=== PATIENT | male | born 1950 | race Caucasian/White ===

== ENCOUNTER 2020-12-12 14:38 | Emergency (ER) | payer MEDICARE ==
[2020-12-12 14:46] VITALS: RESP 18; TEMP 97.9
[2020-12-12 14:55] LABS: Glucose,Whole Blood 393 mg/dL (75-99)
--- NOTE | 2020-12-12 15:02 | ED ---
Neuro HPI - General Chief Complaint: Neuro Symptoms/Deficit Stated Complaint: Poss Stroke Time Seen by Provider: 12/12/20 14:52 Source: patient, family Mode of arrival: wheelchair Limitations: no limitations - History of Present Illness Is the patient presenting with stroke symptoms?: Yes Last Known Well Date: 12/09/20 Onset/Timin -: days(s) Initial Comments: Kendrikc is a 70-year-old male who presents to the emergency department today via private vehicle for evaluation of confusion, right arm weakness, vision changes. Son notes that he noted on Sunday that his dad's right arm seemed to be weak and not working right. Today when he reevaluated the patient the patient had confusion didn't seem like himself didn't seem like he been bathing himself over the weekend. - Related Data Home Medications: Home Medications Medication Instructions Recorded Confirmed No Known Home Medications 12/12/20 12/12/20 Allergies/Adverse Reactions: Allergies Allergy/AdvReac Type Severity Reaction Status Date / Time No Known Allergies Allergy Verified 12/12/20 15:53 Review of Systems ROS Statement: Those systems with pertinent positive or pertinent negative responses have been documented in the HPI. ROS Other: All systems not noted in ROS Statement are negative. General Exam Limitations: no limitations General appearance: alert Head exam: Present: atraumatic, normocephalic Eye exam: Present: other (Pupils round, right less reactive than left, loss of right visual field) ENT exam: Present: normal exam Neck exam: Present: full ROM Respiratory exam: Absent: respiratory distress Cardiovascular Exam: Present: regular rate, normal rhythm Extremities exam: Present: normal capillary refill Neurological exam: Present: alert, other (Drift and Ataxia of right upper extremity) Psychiatric exam: Present: normal affect Skin exam: Present: warm, dry Stroke MDM - Lab Data Result diagrams: 12/12/20 15:01 12/12/20 15:01 Lab Results 12/12/20 12/12/20 12/12/20 Range/Units 14:52 15:01 15:01 WBC 10.4 (3.8-10.6) k/uL RBC 5.20 (4.30-5.90) m/uL Hgb 17.5 (13.0-17.5) gm/dL Hct 52.5 (39.0-53.0) % MCV 100.9 H (80.0-100.0) fL MCH 33.6 (25.0-35.0) pg MCHC 33.3 (31.0-37.0) g/dL RDW 12.4 (11.5-15.5) % Plt Count 278 (150-450) k/uL MPV 9.7 Neutrophils % 82 % Lymphocytes % 10 % Monocytes % 5 % Eosinophils % 1 % Basophils % 1 % Neutrophils # 8.5 H (1.3-7.7) k/uL Lymphocytes # 1.0 (1.0-4.8) k/uL Monocytes # 0.6 (0-1.0) k/uL Eosinophils # 0.1 (0-0.7) k/uL Basophils # 0.1 (0-0.2) k/uL PT 10.4 (9.0-12.0) sec INR 1.0 (<1.2) APTT 25.5 (22.0-30.0) sec Sodium (137-145) mmol/L Potassium (3.5-5.1) mmol/L Chloride (98-107) mmol/L Carbon Dioxide (22-30) mmol/L Anion Gap mmol/L BUN (9-20) mg/dL Creatinine (0.66-1.25) mg/dL Est GFR (CKD-EPI)AfAm (>60 ml/min/1.73 sqM) Est GFR (CKD-EPI)NonAf (>60 ml/min/1.73 sqM) Glucose (74-99) mg/dL POC Glucose (mg/dL) 393 H (75-99) mg/dL POC Glu Wire Basket Maker ID Ricardo Sifuentes Calcium (8.4-10.2) mg/dL Total Bilirubin (0.2-1.3) mg/dL AST (17-59) U/L ALT (4-49) U/L Alkaline Phosphatase (38-126) U/L Troponin I (0.000-0.034) ng/mL Total Protein (6.3-8.2) g/dL Albumin (3.5-5.0) g/dL 12/12/20 12/12/20 Range/Units 15:01 15:01 WBC (3.8-10.6) k/uL RBC (4.30-5.90) m/uL Hgb (13.0-17.5) gm/dL Hct (39.0-53.0) % MCV (80.0-100.0) fL MCH (25.0-35.0) pg MCHC (31.0-37.0) g/dL RDW (11.5-15.5) % Plt Count (150-450) k/uL MPV Neutrophils % % Lymphocytes % % Monocytes % % Eosinophils % % Basophils % % Neutrophils # (1.3-7.7) k/uL Lymphocytes # (1.0-4.8) k/uL Monocytes # (0-1.0) k/uL Eosinophils # (0-0.7) k/uL Basophils # (0-0.2) k/uL PT (9.0-12.0) sec INR (<1.2) APTT (22.0-30.0) sec Sodium 136 L (137-145) mmol/L Potassium 4.5 (3.5-5.1) mmol/L Chloride 98 (98-107) mmol/L Carbon Dioxide 22 (22-30) mmol/L Anion Gap 16 mmol/L BUN 48 H (9-20) mg/dL Creatinine 2.22 H (0.66-1.25) mg/dL Est GFR (CKD-EPI)AfAm 34 (>60 ml/min/1.73 sqM) Est GFR (CKD-EPI)NonAf 29 (>60 ml/min/1.73 sqM) Glucose 423 H (74-99) mg/dL POC Glucose (mg/dL) (75-99) mg/dL POC Glu Wire Basket Maker ID Calcium 10.3 H (8.4-10.2) mg/dL Total Bilirubin 1.0 (0.2-1.3) mg/dL AST 49 (17-59) U/L ALT 29 (4-49) U/L Alkaline Phosphatase 109 (38-126) U/L Troponin I 0.084 H* (0.000-0.034) ng/mL Total Protein 8.1 (6.3-8.2) g/dL Albumin 4.4 (3.5-5.0) g/dL - NIH Stroke Scale 1a. Level of Consciousness: (0) alert 1c. LOC Commands: (0) performs tasks correctly 2. Best Gaze: (0) normal 3. Visual: (1) partial hemianopia 4. Facial Palsy: (0) normal symmetrical movement 5a. Motor Arm Left: (0) no drift 5b. Motor Arm Right: (1) drift 6a. Motor Leg Left: (0) no drift 6b. Motor Leg Right: (0) no drift 7. Limb Ataxia: (1) present 1 limb 8. Sensory: (1) mild/moderate sensory loss 9. Best Language: (0) no aphasia 10. Dysarthria: (0) normal 11. Extinction/Inattention: (1) visual/tactile inattention - Thrombolytic Inclusion/Exclusion Thrombolytic Exclusion Criteria: Symptom Onset > 4.5 Hours - Medical Decision Making Patient was seen and evaluated Patient reported having some symptoms on Sunday initially reported they resolved and now had new symptoms for code stroke was activated however upon further questioning it seems patient has had persistent symptoms and therefore will not be a candidate for TPA This was discussed with neurology on-call Dr Neri who recommends to treat the patient supportively with aspirin, Lipitor and admission for evaluation by neurology Labs also revealed glucose nearly 400 patient has no documented history of diabetes does not know he was diabetic No Evidence of DKA Insulin ordered Computed tomography scan resulted with evidence of subacute infarct with cerebral edema causing mild hydrocephalus, Decadron was ordered, this was discussed with neurosurgery design center consultant Dr. Mena who accepts the patient is a transferred to [facility] for neurosurgical evaluation Past Medical History Additional Past Medical History / Comment(s): bladder CA. History of Any Multi-Drug Resistant Organisms: None Reported Past Surgical History: Unable to Obtain Smoking Status: Never smoker Past Alcohol Use History: Daily Past Drug Use History: None Reported Course Vital Signs 12/12/20 12/12/20 12/12/20 14:39 15:01 16:19 Temperature 97.9 F Pulse Rate 60 86 62 Respiratory 18 18 18 Rate Blood Pressure 133/105 153/99 160/78 O2 Sat by Pulse 97 100 98 Oximetry Critical Care Time Critical Care Time: Yes Total Critical Care Time: 30 Disposition Clinical Impression: Cerebrovascular accident (CVA), Hydrocephalus, Hyperglycemia due to type 2 diabetes mellitus, Confusion Disposition: OTHER INSTITUTION NOT DEFINED Condition: Serious Is patient prescribed a controlled substance at d/c from ED?: No Referrals: None,Stated [Primary Care Provider] - 1-2 days - Out of Hospital Transfer - Req. Specs Out of Hospital Transfer - Requested Specifics: Other Emergency Center ([facility])
[2020-12-12 15:19] LABS: Albumin 4.4 g/dL (3.5-5.0); Calcium 10.3 mg/dL (8.4-10.2); Partial Thromboplastin Time 25.5 sec (22.0-30.0); Potassium 4.5 mmol/L (3.5-5.1); Prothrombin Time 10.4 sec (9.0-12.0); Total Protein 8.1 g/dL (6.3-8.2)
--- NOTE | 2020-12-12 15:30 | CT ---
EXAMINATION TYPE: CT brain wo con for TPA DATE OF EXAM: 12/12/2020 COMPARISON: None HISTORY: Right sided weakness, confusion, right sided loss of vision, ataxia, dizziness. CT DLP: 1067.8 mGycm Automated exposure control for dose reduction was used. There is cerebral cortical atrophy. There is 4.8 x 3 cm area of hypodensity involving cormier-white rory er of the left occipital lobe. This is consistent with subacute infarct. There is mild edema. There i s no evidence of intracranial hemorrhage. Ventricles are slightly enlarged. Calvarium is intact. Skul l base is intact. There is mucosal thickening in the left maxillary sinus. IMPRESSION: Subacute ischemic nonhemorrhagic infarct in the left occipital lobe. Hydrocephalus and cerebral atrophy. 5 mm old lacunar infarct in the left internal capsule..
[2020-12-12 15:34] LABS: Basophils # (A) 0.1 k/uL (0-0.2); Basophils % (A) 1 %; Eosinophils # (A) 0.1 k/uL (0-0.7); Eosinophils % (A) 1 %; HCT 52.5 % (39.0-53.0); HGB 17.5 gm/dL (13.0-17.5); Lymphocytes % (A) 10 %; MCH 33.6 pg (25.0-35.0); MCHC 33.3 g/dL (31.0-37.0); MCV 100.9 fL (80.0-100.0); Mean Platelet Volume 9.7; Monocytes # (A) 0.6 k/uL (0-1.0); Monocytes % (A) 5 %; Neutrophils # (A) 8.5 k/uL (1.3-7.7); Neutrophils % (A) 82 %; Platelet Count 278 k/uL (150-450); RDW 12.4 % (11.5-15.5); WBC 10.4 k/uL (3.8-10.6)
[2020-12-12] MEDS ORDERED: ATORVASTATIN 80 MG TAB PO STA (15:58)
[2020-12-12] MEDS ORDERED: DEXAMETHASONE SOD PHOSPHATE 10 MG/ML 1 ML VIAL IV STA (15:58)
--- NOTE | 2020-12-12 16:02 | CT ---
EXAMINATION TYPE: CT angio head neck DATE OF EXAM: 12/12/2020 COMPARISON: None HISTORY: Right sided weakness, confusion, right sided loss of vision, ataxia, dizziness. CT DLP: 362.1 mGycm Automated exposure control for dose reduction was used. CONTRAST: Performed with IV Contrast, patient injected with 65 mL of Isovue 370. Images were obtained from the aortic arch to the vertex of the brain with IV contrast. There are 3-D post processed images. There is normal branching pattern of the great vessels on the aortic arch. There is arterial flow in both subclavian arteries. There is arterial flow in the common internal and external carotid arteries bilaterally. There is calcified plaque at the carotid artery bifurcations posteriorly. There is lume n narrowing less than 15% bilaterally. There is arterial flow in both vertebral arteries. Left verteb ral artery is larger than the right. There is arterial flow in the vertebrobasilar artery system. The re is no evidence of carotid or vertebral artery aneurysm or dissection. There is arterial flow in the anterior and middle cerebral arteries. I see no significant distal flow in the left posterior cerebral artery. This is in the area of the large occipital lobe apparent suba cute infarct. There is no pathologic enhancement. There is no evidence of an aneurysm. There is brendan l enhancement of the venous sinuses. IMPRESSION: No significant abnormality of the CT angiogram of the neck. There is no evidence of any significant arterial flow distally in the left posterior cerebral artery. 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
[2020-12-12] MEDS ORDERED: INSULIN REGULAR 100 UNIT/ML VIAL IV ONE (16:21)
--- NOTE | 2020-12-12 16:58 | XR ---
EXAMINATION TYPE: XR chest 2V DATE OF EXAM: 12/12/2020 COMPARISON: NONE HISTORY: Right-sided weakness TECHNIQUE: 2 view FINDINGS: Heart and mediastinum are normal. Lungs are clear. Diaphragm is normal. There are chest cedrick ds. Bony thorax is intact. IMPRESSION: No active cardiopulmonary disease. Normal heart.
[2020-12-12 17:22] VITALS: BP 146/94; PULSE 72
== END 2020-12-12 17:39 | disposition other institution (70) ==
LOC: EC 14:38
DX: I63.9 Cerebral infarction, unspecified (principal); G91.9 Hydrocephalus, unspecified; E11.65 Type 2 diabetes mellitus with hyperglycemia; Z85.51 Personal history of malignant neoplasm of bladder
CPT/HCPCS: 36415; 93005; 80053; 84484; 85025; 85610; 85730; 87635; 71046; 70496; 70450; 70498; 99291; 96374; J1100; Q9967

== ENCOUNTER 2021-06-21 16:26 | Inpatient (IN) | payer MEDICARE ==
--- NOTE | 2021-06-21 17:05 | CT ---
EXAMINATION TYPE: CT brain wo con for TPA DATE OF EXAM: 06/21/2021 COMPARISON: 12/12/2020 HISTORY: weakness CT DLP: 1102.8 mGycm Automated exposure control for dose reduction was used. There is cerebral cortical atrophy. There is no mass effect nor midline shift. There is no sign of in tracranial hemorrhage. There is old large left occipital lobe cortical infarct. There is some enlarge ment of the ventricles. Calvarium is intact there is mucosal thickening in the maxillary sinuses. Sku ll base is intact. IMPRESSION: Cerebral atrophy. Old left occipital lobe infarct. Old 5 mm lacunar infarct in the left internal caps ule. No change compared to old exam. There is maxillary sinusitis which is mostly new compared to old exam.
[2021-06-21 17:07] LABS: Glucose,Whole Blood 176 mg/dL (75-99)
[2021-06-21 17:12] LABS: Basophils # (A) 0.1 k/uL (0-0.2); Basophils % (A) 1 %; Eosinophils # (A) 0.8 k/uL (0-0.7); Eosinophils % (A) 9 %; HCT 31.9 % (39.0-53.0); HGB 10.6 gm/dL (13.0-17.5); Lymphocytes # (A) 1.9 k/uL (1.0-4.8); Lymphocytes % (A) 23 %; MCH 32.9 pg (25.0-35.0); MCHC 33.4 g/dL (31.0-37.0); MCV 98.4 fL (80.0-100.0); Mean Platelet Volume 8.1; Monocytes # (A) 0.5 k/uL (0-1.0); Monocytes % (A) 6 %; Neutrophils # (A) 4.8 k/uL (1.3-7.7); Neutrophils % (A) 59 %; Platelet Count 304 k/uL (150-450); RBC 3.24 m/uL (4.30-5.90); RDW 13.4 % (11.5-15.5); WBC 8.2 k/uL (3.8-10.6)
[2021-06-21] MEDS ORDERED: ASPIRIN 325 MG TAB PO STA (17:17)
[2021-06-21 17:23] LABS: Albumin 4.3 g/dL (3.5-5.0); Calcium 9.8 mg/dL (8.4-10.2); Potassium 4.3 mmol/L (3.5-5.1); Total Bilirubin 0.4 mg/dL (0.2-1.3); Total Protein 7.7 g/dL (6.3-8.2)
--- NOTE | 2021-06-21 17:26 | CT ---
EXAMINATION TYPE: CT angio head neck DATE OF EXAM: 06/21/2021 COMPARISON: 12/12/2020 HISTORY: Weakness CT DLP: 404 mGycm Automated exposure control for dose reduction was used. CONTRAST: Performed with IV Contrast, patient injected with 65 mL of Isovue 370. There are 3-D post processed images. Images obtained from the aortic arch to the vertex of the brain with IV contrast. Thoracic aorta is atheromatous. There is normal branching pattern of the great vessels on the aortic arch. There is arterial flow in both subclavian arteries. There is arterial flow in both vertebral ar teries. Left vertebral artery is larger than the right. There is arterial flow in the common internal and external carotid arteries bilaterally. There is some mild plaque formation at the carotid artery bifurcations. There is estimated luminal narrowing 25% at the proximal internal carotid arteries jeff aterally. There is some fusiform narrowing of the proximal right internal carotid artery 25% narrowin g. There is no evidence of carotid or vertebral artery aneurysm or dissection. There is arterial flow in the anterior middle and posterior cerebral arteries bilaterally. There is l arge old left occipital lobe infarct. There is arterial flow in the vertebrobasilar artery system. Th ere is no mass effect. I see no evidence of intracranial aneurysm or neovascularity. There is diminis hed distal flow in the left posterior cerebral artery at the area of infarct. There is normal enhance ment of the venous sinuses. IMPRESSION: Decrease arterial flow in the left posterior cerebral artery distally in the area of large infarct. T his appears unchanged compared to old exam. No acute intracranial angiographic abnormality. Bilateral plaque formation at the carotid artery bifurcations without hemodynamic stenosis. No change compared to old exam.
[2021-06-21 17:28] LABS: Partial Thromboplastin Time 22.9 sec (22.0-30.0); Prothrombin Time 10.5 sec (9.0-12.0)
[2021-06-21 18:19] LABS: Appearance,Urine Clear (Clear); Bacteria,Urine Occasional /hpf; Bilirubin,Urine Negative (Negative); Blood,Urine Negative (Negative); Color,Urine Light Yellow; Glucose,Urine (UA) Negative (Negative); Ketones,Urine Negative (Negative); Leukocyte Esterase,Urine Negative (Negative); Nitrite,Urine Negative (Negative); PH, Urine 5.5 (5.0-8.0); Protein,Urine 1+ (Negative); RBC,Urine 4 /hpf (0-5); Specific Gravity,Urine 1.023 (1.001-1.035); Urobilinogen,Urine <2.0 mg/dL (<2.0); WBC,Urine 6 /hpf (0-5)
--- NOTE | 2021-06-21 18:24 | XR ---
EXAMINATION TYPE: XR chest 2V DATE OF EXAM: 06/21/2021 COMPARISON: 12/12/2020 HISTORY: Altered mental status TECHNIQUE: 2 views FINDINGS: There is no heart failure nor confluent pneumonic infiltrate. Costophrenic angles are clear . There are chest leads. Bony thorax is intact. IMPRESSION: No active cardiopulmonary disease. Normal heart. No change.
[2021-06-21 18:33] LABS: Amphetamine Screen,Urine Not Detected (NotDetected); Barbiturate Screen,Urine Not Detected (NotDetected); Benzodiazepines Screen,Urine Not Detected (NotDetected); Cocaine Screen,Urine Not Detected (NotDetected); Methadone Screen, Urine Not Detected (NotDetected); Opiate Screen,Urine Not Detected (NotDetected); Oxycodone Screen, Urine Not Detected (NotDetected); Phencyclidine Screen,Urine Not Detected (NotDetected); Tricyclic Antidepressant,Urine Not Detected (NotDetected); Urn Cannabinoid Scrn Not Detected (NotDetected)
--- NOTE | 2021-06-21 19:06 | ED ---
General Adult HPI - General Chief complaint: Neuro Symptoms/Deficit Stated complaint: stroke symptoms Time Seen by Provider: 06/21/21 16:28 Source: family, EMS, RN notes reviewed, old records reviewed Mode of arrival: EMS Limitations: no limitations - History of Present Illness Initial comments: Patient is a 71-year-old male with past medical history remarkable for prior CVA with residual right upper extremity weakness, mild aphasia presents emergency Department with concern for possible stroke. Prior stroke occurred in November of this year. He is currently May. Last known well was approximately 4 PM, and he was with his ex- and they were talking with he became quiet. His aphasia became worse. He was slurring his speech. Had right-sided facial droop. She immediately called EMS and had the patient brought to the emergency department for evaluation. Accu-Chek on the way to the hospital was within normal limits. Vital signs are stable. Upon presentation, patient was confused, able to talk but had significant aphasia. This was worse than baseline per EMS. Patient was also having dysarthria and very obvious right- sided facial droop on the lower aspect of the face. I evaluated the patient was being registered at the entrance to the emergency department and immediately had him taken to CT for CT imaging with concern for stroke. Stroke page was activated. At that time, patient could provide a limited history but denied any acute complaints. Baseline for the patient is alert and oriented 2. He is not oriented to time. Is not on blood thinners. Primary historian his EMS, and on the patient's ex- who is somewhat a poor historian when she arrived. - Related Data Home Medications Medication Instructions Recorded Confirmed Atorvastatin [Lipitor] 40 mg PO PC-SUPPER 06/21/21 06/21/21 Cyanocobalamin (Vitamin B-12) 1,000 mcg PO DAILY 06/21/21 06/21/21 [Vitamin B-12] Pioglitazone [Actos] 30 mg PO DAILY 06/21/21 06/21/21 Tamsulosin HCl [Flomax] 0.4 mg PO DAILY 06/21/21 06/21/21 lisinopriL [Zestril] 5 mg PO DAILY 06/21/21 06/21/21 metFORMIN HCL [Glucophage] 1,000 mg PO BID-W/MEALS 06/21/21 06/21/21 Allergies Allergy/AdvReac Type Severity Reaction Status Date / Time No Known Allergies Allergy Verified 06/21/21 17:48 Review of Systems ROS Statement: Those systems with pertinent positive or pertinent negative responses have been documented in the HPI. Review of Systems: (Limited secondary to patient's chronic neurological deficits RI ( CONST: Denies fever EYES: Denies blurry vision ENT: Denies nasal congestion C/V: Denies Chest pain RESP: Denies shortness of breath GI: Denies abdominal pain : Denies dysuria SKIN: Denies rash. MSK: Denies joint pain. NEURO: Denies headache ROS Other: All systems not noted in ROS Statement are negative. Past Medical History Past Medical History: COPD, Diabetes Mellitus Additional Past Medical History / Comment(s): bladder CA, right sided weakness from previous stroke, hemorrhagic stroke History of Any Multi-Drug Resistant Organisms: None Reported Past Surgical History: Hernia Repair Smoking Status: Never smoker Past Alcohol Use History: Daily Past Drug Use History: None Reported General Exam - General Exam Comments Initial Comments: General: Appears in mild distress secondary to symptoms. HEAD: Normal with no signs of head trauma. EYES: PERRLA, EOMI, conjunctiva normal, no discharge. Pupils are 3 mm and equal bilaterally. ENT: Hearing grossly intact, normal oropharynx. Weakness of the right sided lower face. RESPIRATORY: Clear breath sounds bilaterally. No wheezes, rales, or rhonchi. C/V: Regular rate and rhythm. S1 and S2 auscultated, no edema, peripheral pulses 2+ and intact throughout ABD: Abd is soft, nontender, nondistended EXT: No obvious deformity. Patient has chronic right upper extremity weakness and it appears to be at his baseline, with drift to the bed. Patient also has right lower extremity weakness with drift to the bed as well as right-sided facial droop. SKIN: No rashes or lesions observed on exposed skin. NEURO: Alert and oriented 2 which is his baseline. Weakness on the right side of the body as well as right-sided facial droop. Worsening aphasia, as patient cannot name any objects, and has difficulty speaking. His dysarthria as well. Altogether, NIH's 10 at this time, including chronic findings. Limitations: no limitations Course Vital Signs 06/21/21 06/21/21 06/21/21 16:28 17:12 17:41 Temperature 98.5 F Pulse Rate 56 L 56 L 56 L Respiratory 18 20 18 Rate Blood Pressure 153/100 152/79 144/65 O2 Sat by Pulse 98 99 100 Oximetry 06/21/21 06/21/21 18:00 19:00 Temperature Pulse Rate 56 L 59 L Respiratory 18 16 Rate Blood Pressure 154/72 139/77 O2 Sat by Pulse 97 98 Oximetry Medical Decision Making - Medical Decision Making Based on the patient's presentation and physical exam, I was concerned for stroke upon arrival. Stroke page was activated. Stroke labs were ordered as well as CT imaging. NIH was 10 based on our findings, including chronic right- sided weakness in the upper extremity. Patient apparently also has chronic aphasia but to an unknown degree. Patient was in agreement this plan. I spoke with Dr. Joe of neuro intervention who was in agreement this plan. There was initial concern that patient may have had a history of intracranial bleed, as the patient's ex- is uncertain which type of stroke he actually had. She initially states she believes it was a bleed, which made him not a TPA candidate, however we will confirm this. I will keep an open line of communication with Dr. Joe. Head CT revealed no acute intracranial findings. It shows cerebral atrophy with an old left occipital lobe infarct as well as an old 5 mm lacunar infarct in the left internal capsule. There is also maxillary sinusitis present. CTA revealed decreased arterial flow in the left posterior cerebral artery distally in the area of the large infarct, which is unchanged, prior exam. There is no acute intracranial angiographic abnormality. His bilateral plaque formation the carotid artery bifurcations without hemodynamically stenosis. No acute changes. I spoke with Dr. Joe regarding these findings. I also spoke with family, was able to eventually confirm that the patient does have a baseline aphasia and he has difficulty naming objects. NIH stroke scale at this time is now 4. Prior stroke was not a hemorrhagic stroke. Patient is a TPA candidate however we believe that the risks far outweigh the benefits at this point as the patient's NIH stroke scale is improved now showing his chronic symptoms of aphasia, confusion, and right upper extremity weakness. The patient's right-sided facial droop, severe aphasia, dysarthria, and right lower extremity weakness have all resolved. We discussed this with family and the decision was made not to adm inister TPA. Dr. Joe was in agreement with this plan. Remainder the workup revealed that an EKG was sinus bradycardia and no signs of acute ischemia. Patient's chest x-ray revealed no acute cardio pulmonary process. Laboratory studies were remarkable for a normocytic anemia with a hemoglobin of 10.6. Patient is slightly hyperglycemic in the setting of diabetes, and 190. Urinalysis is unremarkable. UDS is unremarkable. Troponin is negative. Patient remains stable at this time with an NIH of 4. I do believe it is best for him to be admitted to the hospital and family and the patient was in agreement this plan. I consulted Dr. Cobos of neurology who agreed to evaluate the patient. Patient was admitted start 325 mg of aspirin. I also spoke with the admitting team under Dr. Mcgowan of [facility] as the patient has no listed PCP and they are on city call. He accepted the patient. Patient will be admitted in serious condition to telemetry bed. - Lab Data Result diagrams: 06/21/21 17:01 06/21/21 17:01 Lab Results 06/21/21 06/21/21 06/21/21 Range/Units 17:01 17:01 17:01 WBC 8.2 (3.8-10.6) k/uL RBC 3.24 L (4.30-5.90) m/uL Hgb 10.6 L (13.0-17.5) gm/dL Hct 31.9 L (39.0-53.0) % MCV 98.4 (80.0-100.0) fL MCH 32.9 (25.0-35.0) pg MCHC 33.4 (31.0-37.0) g/dL RDW 13.4 (11.5-15.5) % Plt Count 304 (150-450) k/uL MPV 8.1 Neutrophils % 59 % Lymphocytes % 23 % Monocytes % 6 % Eosinophils % 9 % Basophils % 1 % Neutrophils # 4.8 (1.3-7.7) k/uL Lymphocytes # 1.9 (1.0-4.8) k/uL Monocytes # 0.5 (0-1.0) k/uL Eosinophils # 0.8 H (0-0.7) k/uL Basophils # 0.1 (0-0.2) k/uL PT 10.5 (9.0-12.0) sec INR 1.0 (<1.2) APTT 22.9 (22.0-30.0) sec Sodium (137-145) mmol/L Potassium (3.5-5.1) mmol/L Chloride (98-107) mmol/L Carbon Dioxide (22-30) mmol/L Anion Gap mmol/L BUN (9-20) mg/dL Creatinine (0.66-1.25) mg/dL Est GFR (CKD-EPI)AfAm (>60 ml/min/1.73 sqM) Est GFR (CKD-EPI)NonAf (>60 ml/min/1.73 sqM) Glucose (74-99) mg/dL POC Glucose (mg/dL) (75-99) mg/dL POC Glu Outreach Worker ID Calcium (8.4-10.2) mg/dL Total Bilirubin (0.2-1.3) mg/dL AST (17-59) U/L ALT (4-49) U/L Alkaline Phosphatase (38-126) U/L Troponin I (0.000-0.034) ng/mL Total Protein (6.3-8.2) g/dL Albumin (3.5-5.0) g/dL Urine Color Light Yellow Urine Appearance Clear (Clear) Urine pH 5.5 (5.0-8.0) Ur Specific [place] 1.023 (1.001-1.035) Urine Protein 1+ H (Negative) Urine Glucose (UA) Negative (Negative) Urine Ketones Negative (Negative) Urine Blood Negative (Negative) Urine Nitrite Negative (Negative) Urine Bilirubin Negative (Negative) Urine Urobilinogen <2.0 (<2.0) mg/dL Ur Leukocyte Esterase Negative (Negative) Urine RBC 4 (0-5) /hpf Urine WBC 6 H (0-5) /hpf Urine Bacteria Occasional H (None) /hpf Urine Opiates Screen Not Detected (NotDetected) Ur Oxycodone Screen Not Detected (NotDetected) Urine Methadone Screen Not Detected (NotDetected) Ur Propoxyphene Screen Not Detected (NotDetected) Ur Barbiturates Screen Not Detected (NotDetected) U Tricyclic Antidepress Not Detected (NotDetected) Ur Phencyclidine Scrn Not Detected (NotDetected) Ur Amphetamines Screen Not Detected (NotDetected) U Methamphetamines Scrn Not Detected (NotDetected) U Benzodiazepines Scrn Not Detected (NotDetected) Urine Cocaine Screen Not Detected (NotDetected) U Marijuana (THC) Screen Not Detected (NotDetected) 06/21/21 06/21/21 06/21/21 Range/Units 17:01 17:01 17:06 WBC (3.8-10.6) k/uL RBC (4.30-5.90) m/uL Hgb (13.0-17.5) gm/dL Hct (39.0-53.0) % MCV (80.0-100.0) fL MCH (25.0-35.0) pg MCHC (31.0-37.0) g/dL RDW (11.5-15.5) % Plt Count (150-450) k/uL MPV Neutrophils % % Lymphocytes % % Monocytes % % Eosinophils % % Basophils % % Neutrophils # (1.3-7.7) k/uL Lymphocytes # (1.0-4.8) k/uL Monocytes # (0-1.0) k/uL Eosinophils # (0-0.7) k/uL Basophils # (0-0.2) k/uL PT (9.0-12.0) sec INR (<1.2) APTT (22.0-30.0) sec Sodium 138 (137-145) mmol/L Potassium 4.3 (3.5-5.1) mmol/L Chloride 103 (98-107) mmol/L Carbon Dioxide 25 (22-30) mmol/L Anion Gap 10 mmol/L BUN 17 (9-20) mg/dL Creatinine 1.19 (0.66-1.25) mg/dL Est GFR (CKD-EPI)AfAm 71 (>60 ml/min/1.73 sqM) Est GFR (CKD-EPI)NonAf 62 (>60 ml/min/1.73 sqM) Glucose 190 H (74-99) mg/dL POC Glucose (mg/dL) 176 H (75-99) mg/dL POC Glu Outreach Worker ID Chris Cheatham Calcium 9.8 (8.4-10.2) mg/dL Total Bilirubin 0.4 (0.2-1.3) mg/dL AST 18 (17-59) U/L ALT 10 (4-49) U/L Alkaline Phosphatase 74 (38-126) U/L Troponin I <0.012 (0.000-0.034) ng/mL Total Protein 7.7 (6.3-8.2) g/dL Albumin 4.3 (3.5-5.0) g/dL Urine Color Urine Appearance (Clear) Urine pH (5.0-8.0) Ur Specific [place] (1.001-1.035) Urine Protein (Negative) Urine Glucose (UA) (Negative) Urine Ketones (Negative) Urine Blood (Negative) Urine Nitrite (Negative) Urine Bilirubin (Negative) Urine Urobilinogen (<2.0) mg/dL Ur Leukocyte Esterase (Negative) Urine RBC (0-5) /hpf Urine WBC (0-5) /hpf Urine Bacteria (None) /hpf Urine Opiates Screen (NotDetected) Ur Oxycodone Screen (NotDetected) Urine Methadone Screen (NotDetected) Ur Propoxyphene Screen (NotDetected) Ur Barbiturates Screen (NotDetected) U Tricyclic Antidepress (NotDetected) Ur Phencyclidine Scrn (NotDetected) Ur Amphetamines Screen (NotDetected) U Methamphetamines Scrn (NotDetected) U Benzodiazepines Scrn (NotDetected) Urine Cocaine Screen (NotDetected) U Marijuana (THC) Screen (NotDetected) - EKG Data -: EKG Interpreted by Me EKG Comments: 12-lead Electrocardiogram Interpretation Note EKG was reviewed and interpreted by myself. 12-lead ECG performed at 1650 is interpreted by me as revealing sinus bradycardia at a rate of 57 beats per minute. [place] is normal. RI interval is 170 ms, QRS duration is 102 ms. QTc is 445 ms.. There were no ST or T wave abnormalities to suggest myocardial ischemia or injury. R wave progression across the precordium was satisfactory. By my interpretation this EKG is non-diagnostic for acute ischemia. Critical Care Time Critical Care Time: Yes Total Critical Care Time: 30 Critical Care Time: Upon my evaluation, this patient had a high probability of imminent or life- threatening deterioration due to TIA/CVA, which required my direct attention, intervention, and personal management. I have personally provided 30 minutes of critical care time exclusive of time spent on separately billable procedures. Time includes review of laboratory data, radiology results, discussion with consultants, and monitoring for potential decompensation. Interventions were performed as documented in my note. Disposition Clinical Impression: Cerebrovascular accident (CVA), TIA (transient ischemic attack), Chronic focal neurological deficit Disposition: ADMITTED IP TO THIS [facility] Condition: Serious Referrals: None,Stated [Primary Care Provider] - 1-2 days
--- NOTE | 2021-06-22 04:17 | P.HPIM ---
History of Present Illness H&P Date: 06/21/21 Chief Complaint: Slurred speech or facial droop and right-sided 71-year-old male with history of diabetes mellitus, CVA with right residual upper extremity weakness Comes into evaluation by EMS for worsening aphasia and slurred speech. Along with right sided facial droop. Seems like around 4 PM today patient suddenly became more quiet having difficulty with speech family member with him immediately noticed these changes notified EMS and brought him to the hospital for evaluation initially in the ED his baseline was unknown from a stroke that he had in November 2020 however later on it was determined that he has some residual right upper extremity weakness and some slurred speech at baseline with his current isn't patient puts him at the NIH of for close stroke was activated CT of the brain and CT and GI was done neurology evaluated the patient TPA was not given due to NIH of 4 and patient was ordered showing some improvement in symptoms are on patient's symptoms completely resolved without intervention Patient had no history of falling, he is not on any blood thinners currently feels going back to normal. Denies any double vision or any other new focal zara ro deficits Imaging showed cerebral atrophy with old left occipital lobe infarct and old 5 mm lacunar infarct in the left internal capsule CT angios showed decreased arterial flow in the left posterior cerebral artery distally in the area of large infarct which is unchanged from prior exam without any acute findings. Also bilateral plaque formation of the carotid artery bifurcation without hemodynamic significant stenosis no changes from prior Review of Systems Pertinent positives as noted in HPI. All other systems were reviewed and are negative Past Medical History Past Medical History: COPD, Diabetes Mellitus Additional Past Medical History / Comment(s): bladder CA, right sided weakness from previous stroke, hemorrhagic stroke History of Any Multi-Drug Resistant Organisms: None Reported Past Surgical History: Hernia Repair Smoking Status: Never smoker Past Alcohol Use History: Daily Past Drug Use History: None Reported Medications and Allergies Home Medications Medication Instructions Recorded Confirmed Type Atorvastatin [Lipitor] 40 mg PO PC-SUPPER 06/21/21 06/21/21 History Cyanocobalamin (Vitamin B-12) 1,000 mcg PO DAILY 06/21/21 06/21/21 History [Vitamin B-12] Pioglitazone [Actos] 30 mg PO DAILY 06/21/21 06/21/21 History Tamsulosin HCl [Flomax] 0.4 mg PO DAILY 06/21/21 06/21/21 History lisinopriL [Zestril] 5 mg PO DAILY 06/21/21 06/21/21 History metFORMIN HCL [Glucophage] 1,000 mg PO BID-W/MEALS 06/21/21 06/21/21 History Allergies Allergy/AdvReac Type Severity Reaction Status Date / Time No Known Allergies Allergy Verified 06/21/21 17:48 Physical Exam Vitals: Vital Signs Temp Pulse Resp BP Pulse Ox 06/21/21 19:00 59 L 16 139/77 98 06/21/21 18:00 56 L 18 154/72 97 06/21/21 17:41 56 L 18 144/65 100 06/21/21 17:12 56 L 20 152/79 99 06/21/21 16:28 98.5 F 56 L 18 153/100 98 Intake and Output 06/21/21 06/21/21 06/21/21 06:59 14:59 22:59 Other: Weight 53.07 kg Constitutional: No acute distress, conversant, pleasant Eyes: Anicteric sclerae, moist conjunctiva, Pupils equal round reactive to light ENMT: NC/AT Oropharynx clear, no erythema, or exudates Neck: Supple, FROM, no masses, or JVD No carotid bruits No thyromegaly Lungs: Clear to auscultation Clear to percussion Normal respiratory effort, no accessory muscle use Cardiovascular: Heart regular in rate and rhythm, No murmurs, gallops, or rubs No peripheral edema Abdominal: Soft Nontender, no guarding, rebound or rigidity Abdomen moving with respiration Normoactive bowel sounds No hepatomegaly, No splenomegaly No palpable mass No abdominal wall hernia noted Skin: Normal temperature, tone, texture, turgor No induration No subcutaneous nodules No rash, lesions No ulcers Extremities: No digital cyanosis No clubbing Pedal pulses intact and symmetrical Radial pulses intact and symmetrical No calf tenderness Psychiatric: Alert and oriented to person, place Appropriate affect fair judgement Neuro Muscles Strength 4/5 in bilateral lower extremities, 4/5 strength in bilateral upper extremities left side is stronger than the right Sensation to light touch grossly present throughout Cranial nerves II-XII grossly intact Lymphatics: no palpable cervical or supraclavicular , or inguinal lymph nodes Results CBC & Chem 7: 06/21/21 17:01 06/21/21 17:01 Labs: Abnormal Lab Results - Last 24 Hours (Table) 06/21/21 06/21/21 06/21/21 Range/Units 17:01 17:01 17:01 RBC 3.24 L (4.30-5.90) m/uL Hgb 10.6 L (13.0-17.5) gm/dL Hct 31.9 L (39.0-53.0) % Eosinophils # 0.8 H (0-0.7) k/uL Glucose 190 H (74-99) mg/dL POC Glucose (mg/dL) (75-99) mg/dL Urine Protein 1+ H (Negative) Urine WBC 6 H (0-5) /hpf Urine Bacteria Occasional H (None) /hpf 06/21/21 Range/Units 17:06 RBC (4.30-5.90) m/uL Hgb (13.0-17.5) gm/dL Hct (39.0-53.0) % Eosinophils # (0-0.7) k/uL Glucose (74-99) mg/dL POC Glucose (mg/dL) 176 H (75-99) mg/dL Urine Protein (Negative) Urine WBC (0-5) /hpf Urine Bacteria (None) /hpf Assessment and Plan Assessment: TIA Patient presented with right lower extremity weakness right facial droop and slurred speech all symptoms resolved Continue with neurochecks Neurology consult No TPA given Continue with aspirin and statin PT eval Swallow eval CT of the brain and CT angiogram both reviewed as summarized above in HPI Chronic conditions Hypertension resume blood pressure meds in the morning Diabetes mellitus continue with insulin sliding scale Patient is full code DVT prophylaxis mechanical Anticipated length of stay less than 2 midnights Expected discharge home
[2021-06-22 05:24] LABS: Basophils % (A) 1 %; Eosinophils # (A) 0.7 k/uL (0-0.7); Eosinophils % (A) 11 %; HCT 30.8 % (39.0-53.0); HGB 10.2 gm/dL (13.0-17.5); Lymphocytes # (A) 1.8 k/uL (1.0-4.8); Lymphocytes % (A) 26 %; MCHC 33.2 g/dL (31.0-37.0); MCV 99.2 fL (80.0-100.0); Mean Platelet Volume 7.6; Monocytes # (A) 0.3 k/uL (0-1.0); Monocytes % (A) 5 %; Neutrophils # (A) 3.7 k/uL (1.3-7.7); Neutrophils % (A) 56 %; Platelet Count 264 k/uL (150-450); RDW 13.2 % (11.5-15.5); WBC 6.6 k/uL (3.8-10.6)
[2021-06-22 05:39] LABS: Albumin 3.5 g/dL (3.5-5.0); Calcium 9.4 mg/dL (8.4-10.2); Potassium 4.1 mmol/L (3.5-5.1); Total Bilirubin 0.3 mg/dL (0.2-1.3); Total Protein 6.7 g/dL (6.3-8.2)
[2021-06-22] MEDS ORDERED: metFORMIN 500 MG TAB PO SCH (07:30)
[2021-06-22] MEDS: INSULIN ASPART (NovoLOG) 100 UNIT/ML VIAL SQ SCH ×4 (07:53→21:03)
[2021-06-22 07:55] LABS: Glucose,Whole Blood 125 mg/dL (75-99)
[2021-06-22] MEDS: CYANOCOBALAMIN 500 MCG TAB PO SCH (07:57)
[2021-06-22] MEDS: ASPIRIN 81 MG PO SCH (07:57)
[2021-06-22] MEDS: TAMSULOSIN 0.4 MG CAP.ER.24H PO SCH (07:57)
[2021-06-22] MEDS: lisinopriL 5 MG TAB PO SCH (07:57)
[2021-06-22] MEDS ORDERED: PIOGLITAZONE 30 MG TAB PO SCH (09:00)
[2021-06-22] MEDS ORDERED: FAMOTIDINE 20 MG TAB PO SCH (09:00)
--- NOTE | 2021-06-22 09:21 | US ---
EXAMINATION TYPE: US carotid duplex BILAT DATE OF EXAM: 06/22/2021 COMPARISON: NONE CLINICAL HISTORY: CVA. EXAM MEASUREMENTS: RIGHT: Peak Systolic Velocity (PSV) cm/sec ----- Right CCA: 77.1 ----- Right ICA: 94.4 ----- Right ECA: 99.1 ICA/CCA ratio: 1.2 RIGHT: End Diastole cm/sec ----- Right CCA: 16.9 ----- Right ICA: 23.8 ----- Right ECA: 7.6 LEFT: Peak Systolic Velocity (PSV) cm/sec ----- Left CCA: 72.1 ----- Left ICA: 126.8 ----- Left ECA: 86.0 ICA/CCA ratio: 1.8 LEFT: End Diastole cm/sec ----- Left CCA: 16.6 ----- Left ICA: 41.2 ----- Left ECA: 9.1 VERTEBRALS (direction of flow): Right Vertebral: Antegrade Left Vertebral: Antegrade Rhythm: Normal No significant stenosis grayscale, color Doppler, spectral Doppler imaging performed the carotid jose ramos. Waveform analysis does not show significant stenosis of the internal carotid arteries. Atheromatous change present at the carotid bulb on the left and right IMPRESSION: No hemodynamic significant stenosis of the proximal internal carotid arteries by Doppler criteria, an indirect measurement of carotid stenosis Criteria for Assigning % of Stenosis / Diameter reduction (Estimation based on the indirect measurements of the internal carotid artery velocities (ICA PSV). 1. Normal (no stenosis)=ICA PSV < 125 cm/s: ratio < 2.0: ICA EDV<40 cm/s. 2. Less than 50% stenosis=ICA PSV < 125 cm/s: ratio < 2.0: ICA EDV<40 cm/s. 3. 50 to 69% stenosis=ICA PSV of 125 to 230 cm/s: ration 2.0 ? 4.0: ICA EDV 40-100 cm/s. 4. Greater than 70% stenosis to near occlusion= ICA PSV > 230 cm/s: ratio > 4.0: ICA EDV > 100 cm/s. 5. Near occlusion= ICA PSV velocities may be low or undetectable: variable ratio and ICA EDV. 6. Total occlusion=unable to detect flow.
[2021-06-22 09:51] LABS: Chol/HDL Ratio 5.31 Ratio; HDL Cholesterol 37.3 mg/dL (40.00-60.00); LDL Cholesterol,Calculated 136.1 mg/dL (0.0-131.0); VLDL Calculation 24.6 mg/dL (5.00-40.00)
--- NOTE | 2021-06-22 10:37 | ECHOF ---
Referral Reason:CVA MEASUREMENTS -------- HEIGHT: 162.6 cm WEIGHT: 53.1 kg BP: RVIDd: 1.7 cm (< 3.3) IVSd: 1.1 cm (0.6 - 1.1) LVIDd: 3.9 cm (3.9 - 5.3) LVPWd: 1.2 cm (0.6 - 1.1) IVSs: 1.6 cm LVIDs: 2.0 cm LVPWs: 1.7 cm LAESV Index (A-L): 23.48 ml/m Ao Diam: 3.3 cm (2.0 - 3.7) AV Cusp: 1.3 cm (1.5 - 2.6) LA Diam: 2.8 cm (2.7 - 3.8) MV EXCURSION: 14.100 mm (> 18.000) MV EF SLOPE: 39 mm/s (70 - 150) EPSS: 0.3 cm MV E Trent: 0.84 m/s MV DecT: 207 ms MV A Trent: 0.70 m/s MV E/A Ratio: 1.21 AV maxP.59 mmHg AV meanP.19 mmHg AR PHT: 1378 ms RAP: 5.00 mmHg RVSP: 31.50 mmHg FINDINGS -------- This was a technically good study. The left ventricular size is normal. There is borderline concentric left ventricular hypertrophy. Overall left ventricular systolic function is normal with, an EF between 55 - 60 %. Normal LAP. Gr orn 1 Diastolic Dysfunction. The right ventricle is normal in size. The left atrial size is normal. Normal LA size by volume 22+/-6 ml/m2. The right atrial size is normal. Interatrial and interventricular septum intact. Aortic valve is trileaflet and is moderately thickened. There is [id number] aortic regurgitat ion. There is moderate aortic stenosis present. Peak/mean gradient across the Aortic Valve is 27. 59mmHg / 15.19mmHg. The mitral valve is normal. The mitral valve leaflets are mildly thickened. Mild mitral regurgita tion is present. The tricuspid valve appears structurally normal. Mild tricuspid regurgitation present. Right vent ricular systolic pressure is normal at < 35 mmHg. There is no pulmonic regurgitation present. The aortic root size is normal. Normal inferior vena cava with normal inspiratory collapse consistent with estimated right atrial pre ssure of 5 mmHg. There is no pericardial effusion. CONCLUSIONS -------- 1. The left ventricular size is normal. 2. There is borderline concentric left ventricular hypertrophy. 3. Overall left ventricular systolic function is normal with, an EF between 55 - 60 %. 4. Normal LAP. Grade 1 Diastolic Dysfunction. 5. Aortic valve is trileaflet and is moderately thickened. 6. There is [id number] aortic regurgitation. 7. There is moderate aortic stenosis present. 8. Peak/mean gradient across the Aortic Valve is 27.59mmHg / 15.19mmHg. 9. The mitral valve leaflets are mildly thickened. 10. Mild mitral regurgitation is present. 11. Mild tricuspid regurgitation present. 12. There is no pericardial effusion. LEATHER CASE FINISHER: Gisell Garvin RDCS
--- NOTE | 2021-06-22 11:57 | P.CNNES ---
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 History is obtained from Ex- since patient is a poor historian. Per his ex- he had right facial droop, worsening weakness of right side, slurred speech and seems confused. She noticed it yesterday and while he was in the hospital she felt his symptoms has resolved to his baseline. She stated he had a stroke in 11/2020 and was initially in our facility then was transferred to [facility] for further management. She said he had an ischemic stroke what she was told. Patient is not on an antiplatelet or anticoagulation. He is only Lipitor 40mg qhs. He is not following with a neurologist as outpatient since he had stroke but was following-up with his PCP. The stated she was not notified of him needing antiplatetes to her knowledge according to the paper work she got. She said she never spoke with the neurologist at [facility] because of COVID. Patient was send to rehab afterwards for 3 weeks. Currently he lives with his son. He son and patient ex- take care of him. He has a loop recorder placed currently. Patient baseline is alert oriented 2. He is not oriented to time. The patient is on home medication of Metformin, Lisnopril, Flomax, Vitamin B12 1000mcg daily and Piogtazone. Some of the workup in the hospital consisted of: Initial blood pressure of 153/100, heart rate of 56, respiratory of 18, temperature of 98.5 Fahrenheit oral and pulse ox of 98% room air. White blood cell is 8.2 thousand. Hemoglobin is 10.6. Sodium was 138, creatinine is 1.19, calcium is 9.8, calcium is 9.8, AST of 18, ALT of 10. Initial serum glucose is 190. Lipid panel is a triglyceride of 123, cholesterol is 198, LDL is 136 and HDL of 37. Urine drug screen is not detected. Urinalysis negative for urinary tract infection. Kennedy virus PCR was not detected. CT of the head is reported as cerebral atrophy. Old left occipital lobe infarct. Old 5 mm lacunar infarct in left internal capsule. No change compared to old exam. There is a maxillary sinusitis which is a mostly new compared to o ld exam. I personally reviewed the CT of the head I felt the stroke is predominantly in the left occipital that is old, possible slight in left parietal which seems chronic. CT angiography of the head and neck was reported as decreased arterial flow in the left posterior cerebral artery distal and the area of large infarct. This appears unchanged compared to old exam. No acute intracranial angiographic abnormality. Bilateral plaque formation at the carotid artery bifurcation without hemodynamic stenosis. No change compared to old exam. Carotid duplex: No hemodynamic significant stenosis of the proximal internal carotid arteries by Doppler criteria, an indirect measurement of carotid osvaldo nosis. Stroke code was activated by the ED team. Patient initial NIH in the ED was 10 which included chronic right sided weakness mostly in the upper extremity, aphasia. And his repeated NIH stroke scale was a 4 per the ED team intubated was not given since his symptoms were improving. The ED team spoke with the stroke attending (Dr. Steinberg) Review of Systems Review of system: The 12 point system was reviewed and apparent positive and negative per HPI. Past Medical History Past Medical History: COPD, Diabetes Mellitus Additional Past Medical History / Comment(s): bladder CA, right sided weakness from previous stroke, hemorrhagic stroke History of Any Multi-Drug Resistant Organisms: None Reported Past Surgical History: Hernia Repair Smoking Status: Never smoker Past Alcohol Use History: Daily Past Drug Use History: None Reported Medications and Allergies Home Medications Medication Instructions Recorded Confirmed Type Atorvastatin [Lipitor] 40 mg PO PC-SUPPER 06/21/21 06/21/21 History Cyanocobalamin (Vitamin B-12) 1,000 mcg PO DAILY 06/21/21 06/21/21 History [Vitamin B-12] Pioglitazone [Actos] 30 mg PO DAILY 06/21/21 06/21/21 History Tamsulosin HCl [Flomax] 0.4 mg PO DAILY 06/21/21 06/21/21 History lisinopriL [Zestril] 5 mg PO DAILY 06/21/21 06/21/21 History metFORMIN HCL [Glucophage] 1,000 mg PO BID-W/MEALS 06/21/21 06/21/21 History Allergies Allergy/AdvReac Type Severity Reaction Status Date / Time No Known Allergies Allergy Verified 06/21/21 17:48 Physical Examination - Vital Signs Vital Signs: Vital Signs Temp Pulse Resp BP Pulse Ox 06/22/21 07:23 97.9 F 52 L 16 145/80 96 06/22/21 06:00 98.4 F 57 L 18 137/79 97 06/22/21 00:00 54 L 18 132/65 98 06/21/21 21:00 55 L 18 133/74 95 06/21/21 20:00 58 L 18 151/69 95 06/21/21 19:00 59 L 16 139/77 98 06/21/21 18:00 56 L 18 154/72 97 06/21/21 17:41 56 L 18 144/65 100 06/21/21 17:12 56 L 20 152/79 99 06/21/21 16:28 98.5 F 56 L 18 153/100 98 Intake and Output 06/21/21 06/22/21 06/22/21 22:59 06:59 14:59 Other: Weight 53.07 kg GENERAL: The patient is lying in bed and is not in acute distress. CHEST: The heart rate is regular rate rhythm. No murmurs to auscultation. LUNG: Clear to auscultation bilaterally no wheezing noted throughout. Not labored breathing. ABDOMEN/GI: Bowel sounds present in all 4 quadrants. No tenderness to palpation throughout. NEUROLOGICAL: Somewhat limited because of cooperation. Higher mental function: The patient is awake, alert, oriented to self and place but not time. He is slow to respond. He is naming objects (pen and cup) correctly. Patient is following simple commands. Difficulty to exam language in detail but does not appear wernicke. No neglect. Cranial nerves: The pupils are round, equal and reactive to light. Visual wright: Difficulty to assess because of cooperation but appears Right homonymous Hemianopsia (old per ) . Extraocular movement is intact no nystagmus is noted. Facial sensation is normal to touch throughout. The facial strength is normal throughout. Hearing is moderately decreased bilaterally to hand rub. Tongue is midline and moved [id number] without any difficulty. No dysarthria is noted. Shoulder shrug is normal bilaterally. Motor: Gait is deferred. The strength is right upper is 4 but has increase tone because old stroke. Right knee extension is 4+ (per old). Otherwise 5 over 5 throughout left. Increase tone over the right upper (most at elbow). Normal bulk. Cerebellum: Normal finger to nose bilaterally. Sensation: Sensation is normal to touch throughout. Reflexes (right/left): 2+ throughout. Plantars is upgoing over the right and mute over the left. Results - Laboratory Findings CBC and BMP: 06/22/21 04:46 06/22/21 04:46 Abnormal Lab Findings: Abnormal Labs 06/21/21 06/21/21 06/21/21 17:01 17:01 17:01 RBC 3.24 L Hgb 10.6 L Hct 31.9 L Eosinophils # 0.8 H Glucose 190 H POC Glucose (mg/dL) AST LDL Cholesterol, Calc HDL Cholesterol Urine Protein 1+ H Urine WBC 6 H Urine Bacteria Occasional H 06/21/21 06/22/21 06/22/21 17:06 04:46 04:46 RBC 3.10 L Hgb 10.2 L Hct 30.8 L Eosinophils # Glucose 103 H POC Glucose (mg/dL) 176 H AST 16 L LDL Cholesterol, Calc 136.1 H HDL Cholesterol 37.30 L Urine Protein Urine WBC Urine Bacteria 06/22/21 07:53 RBC Hgb Hct Eosinophils # Glucose POC Glucose (mg/dL) 125 H AST LDL Cholesterol, Calc HDL Cholesterol Urine Protein Urine WBC Urine Bacteria Assessment and Plan Assessment: Likely Transient ischemic stroke (with worsening of right facial droop, dysarthria and right sided weakness). No IV tpa since symptoms improved. Patient not on any antiplatelets (since family not aware and no information he needed to be). Old stroke on 11/2020 (Left occipital) with residual right hemiparesis (upper >lower), right homonymous hemianposia and aphasia Mild cognitive deficit/dementia (baseline oriented X2) Diabetes mellitus (Last HbA1c is 8.9 on 01/03/2021) Dyslipidemia Plan: * In the ED the patient was given aspirin 325 once then was started on aspirin 81 mg daily. I also started the patient on Plavix 75mg daily. Patient needs to be on dual antiplatets for 21 days and after that stop Plavix but continue ASA indefinitely. Continue Lipitor 40mg daily at bedtime for secondary stroke prophylaxis. LDL goal and strokes is less than the 70. * Cannot get MRI the brain since the patient has a loop recorder. * Hemoglobin A1c is ordered by the primary team is pending * PT, OT and PRISON GUARD SUPERVISOR are consulted * Continue neuro checks * On cardiac monitoring * We'll defer the rest of medical management to the primary team * Upon discharge the patient needs to follow-up with his neurologist within 1-2 weeks. The plan is discussed with the patient's nurse and his ex- (via phone). Thank you for the consultation. Shoaib Cobos M.D. Neuro-Hospitalist Time with Patient: Greater than 30
--- NOTE | 2021-06-22 12:05 | P.CRDCN ---
History of Present Illness History of present illness: HISTORY OF PRESENTING ILLNESS This is a pleasant 71-year-old male past medical history significant for CVA with right sided residual weakness, hypertension, dyslipidemia, type 2 diabetes. He does not follow with a computer assembler. We have been asked to see in consultation for CVA. Patient is somewhat a poor historian, he is unable to give me an accurate review of systems or explain what brought him into the hospital. Apparently he was brought to the emergency department due to worsening right sided facial droop, right sided weakness, and worsening aphasia and slurred speech. On exam, patient dose deny any chest pain, shortness of breath, palpitations, lightheadedness, dizziness, syncope or presyncope. He denies symptoms of orthopnea or PND. Patient denies history of irregular heart rhythm or atrial fibrillation, NV, coronary artery disease. On admission, code stroke was activated. CT head revealed cerebral atrophy with old left occipital lobe infarct and old 5 mm lacunar infarct in the left internal capsule. No change from prior. DIAGNOSTICS EKG reveals sinus bradycardia Telemetry tracings indicate sinus bradycardia HR 50s CT angio head and neck- decreased arterial flow in the left posterior cerebral artery distally in the area of large infarct. Unchanged from prior exam. No acute intracranially abnormality. Bilateral plaque formation at carotid artery bifurcations without hemodynamic stenosis. No change from prior Echocardiogram revealed EF of 5560 percent, aortic valve is trileaflet and mildly thickened, mild to moderate mitral regurgitation, moderate aortic stenosis with a peak/mean gradient 27 mmHg/15mmHg, mild mitral and mild tricuspid regurgitation Carotid Dopplers revealed no hemodynamic significant stenosis of the proximal internal carotid arteries. Chest xray No active cardiopulmonary disease. Normal heart. Laboratory reviewed, WBC 6.6, hemoglobin 10.2, platelets 264, sodium 138, potassium 4.1, BUN 17, serum parental 1.15, troponin negative 1, triglycerides 123, cholesterol 198, LDL 136, HDL 37. Current home medications include atorvastatin 40 mg nightly, metformin, lisinopril 5 mg daily, Actos 30 mg daily REVIEW OF SYSTEMS At the time of my exam: CONSTITUTIONAL: Denies fever or chills. CARDIOVASCULAR: Denies chest pain, shortness of breath, orthopnea, PND or palpitations. RESPIRATORY: Denies cough. GASTROINTESTINAL: Denies abdominal pain, diarrhea, constipation, nausea or vomiting. MUSCULOSKELETAL: Denies myalgias. NEUROLOGIC: Denies numbness, tingling, headacbe or weakness. ENDOCRINE: Denies fatigue, weight change, polydipsia or polyurina. GENITOURINARY: Denies burning, hematuria or urgency with micturation. HEMATOLOGIC: Denies history of anemia or bleeding. PHYSICAL EXAMINATION Blood pressure 141/79, heart 52, afebrile, maintaining saturations on room air CONSTITUTIONAL: No apparent distress. HEENT: Head is normocephalic. Pupils are equal, round. Sclerae anicteric. Mucous membranes of the mouth are moist. No JVD. No carotid bruit. CHEST EXAMINATION: Lungs are clear to auscultation. No chest wall tenderness is noted on palpation or with deep breathing. HEART EXAMINATION: Regular rate and rhythm. S1, S2 heard. Systolic ejection murmur at the base ABDOMEN: Soft, nontender. Positive bowel sounds. EXTREMITIES: 2+ peripheral pulses, no lower extremity edema and no calf tenderness. NEUROLOGIC EXAMINATION: Patient is awake, alert and oriented x2. ASSESSMENT Right sided weakness, right facial droop, slurred speech, aphasia History of CVA with right-sided residual weakness Hypertension Dyslipidemia Type 2 diabetes Moderate aortic stenosis PLAN 2D echocardiogram obtained and reviewed Continue aspirin, statin, and lisinopril Neurology consulted No further cardiac testing indicated at this time. Nurse Practitioner note has been reviewed, I agree with a documented findings and plan of care. Patient was seen and examined. Past Medical History Past Medical History: COPD, Diabetes Mellitus Additional Past Medical History / Comment(s): bladder CA, right sided weakness from previous stroke, hemorrhagic stroke History of Any Multi-Drug Resistant Organisms: None Reported Past Surgical History: Hernia Repair Smoking Status: Never smoker Past Alcohol Use History: Daily Past Drug Use History: None Reported Medications and Allergies Home Medications Medication Instructions Recorded Confirmed Type Atorvastatin [Lipitor] 40 mg PO PC-SUPPER 06/21/21 06/21/21 History Cyanocobalamin (Vitamin B-12) 1,000 mcg PO DAILY 06/21/21 06/21/21 History [Vitamin B-12] Pioglitazone [Actos] 30 mg PO DAILY 06/21/21 06/21/21 History Tamsulosin HCl [Flomax] 0.4 mg PO DAILY 06/21/21 06/21/21 History lisinopriL [Zestril] 5 mg PO DAILY 06/21/21 06/21/21 History metFORMIN HCL [Glucophage] 1,000 mg PO BID-W/MEALS 06/21/21 06/21/21 History Allergies Allergy/AdvReac Type Severity Reaction Status Date / Time No Known Allergies Allergy Verified 06/21/21 17:48 Physical Exam Vitals: Vital Signs Temp Pulse Resp BP Pulse Ox 06/22/21 07:23 97.9 F 52 L 16 145/80 96 06/22/21 06:00 98.4 F 57 L 18 137/79 97 06/22/21 00:00 54 L 18 132/65 98 06/21/21 21:00 55 L 18 133/74 95 06/21/21 20:00 58 L 18 151/69 95 06/21/21 19:00 59 L 16 139/77 98 06/21/21 18:00 56 L 18 154/72 97 06/21/21 17:41 56 L 18 144/65 100 06/21/21 17:12 56 L 20 152/79 99 06/21/21 16:28 98.5 F 56 L 18 153/100 98 Intake and Output 06/21/21 06/22/21 06/22/21 22:59 06:59 14:59 Other: Weight 53.07 kg Results 06/22/21 04:46 06/22/21 04:46 Cardiac Enzymes 06/21/21 06/21/21 06/22/21 Range/Units 17:01 17:01 04:46 AST 18 16 L (17-59) U/L Troponin I <0.012 (0.000-0.034) ng/mL Coagulation 06/21/21 Range/Units 17:01 PT 10.5 (9.0-12.0) sec APTT 22.9 (22.0-30.0) sec CBC 06/21/21 06/22/21 Range/Units 17:01 04:46 WBC 8.2 6.6 (3.8-10.6) k/uL RBC 3.24 L 3.10 L (4.30-5.90) m/uL Hgb 10.6 L 10.2 L (13.0-17.5) gm/dL Hct 31.9 L 30.8 L (39.0-53.0) % Plt Count 304 264 (150-450) k/uL Comprehensive Metabolic Panel 06/21/21 06/22/21 Range/Units 17:01 04:46 Sodium 138 138 (137-145) mmol/L Potassium 4.3 4.1 (3.5-5.1) mmol/L Chloride 103 107 (98-107) mmol/L Carbon Dioxide 25 24 (22-30) mmol/L BUN 17 17 (9-20) mg/dL Creatinine 1.19 1.15 (0.66-1.25) mg/dL Glucose 190 H 103 H (74-99) mg/dL Calcium 9.8 9.4 (8.4-10.2) mg/dL AST 18 16 L (17-59) U/L ALT 10 8 (4-49) U/L Alkaline Phosphatase 74 65 (38-126) U/L Total Protein 7.7 6.7 (6.3-8.2) g/dL Albumin 4.3 3.5 (3.5-5.0) g/dL Current Medications Generic Name Dose Route Start Last Admin Trade Name Freq PRN Reason Stop Dose Admin Aspirin 81 mg 06/22/21 09:00 06/22/21 07:57 Aspirin 81 Mg PO 81 mg DAILY JAROCHO Administration Atorvastatin Calcium 40 mg 06/22/21 18:30 Atorvastatin 40 Mg Tab PO PC-SUPPER JAROCHO Cyanocobalamin 1,000 mcg 06/22/21 09:00 06/22/21 07:57 Cyanocobalamin 500 Mcg Tab PO 1,000 mcg DAILY JAROCHO Administration Famotidine 40 mg 06/22/21 09:00 06/22/21 07:59 Famotidine 20 Mg Tab PO 40 mg DAILY JAROCHO Administration Insulin Aspart 0 unit 06/22/21 07:30 06/22/21 07:53 Insulin Aspart (Novolog) 100 Unit/Ml Vial SQ Not Given ACHS [facility] Protocol Lisinopril 5 mg 06/22/21 09:00 06/22/21 07:57 Lisinopril 5 Mg Tab PO 5 mg DAILY JAROCHO Administration Tamsulosin HCl 0.4 mg 06/22/21 09:00 06/22/21 07:57 Tamsulosin 0.4 Mg Cap.Er.24h PO 0.4 mg DAILY JAROCHO Administration Intake and Output 06/21/21 06/22/21 06/22/21 22:59 06:59 14:59 Other: Weight 53.07 kg 06/22/21 04:46 06/22/21 04:46
--- NOTE | 2021-06-22 12:16 | P.PN ---
Subjective Progress Note Date: 06/22/21 Patient seen and examined at bedside. Patient is a poor historian. Patient is alert awake and oriented to person only. Patient's speech is normal patient denies chest pain shortness of breath nausea vomiting fevers or chills. Patient does have residual right sided hemiparesis Objective - Vital Signs Vital signs: Vital Signs Temp 97.9 F 06/22/21 07:23 Pulse 52 L 06/22/21 10:00 Resp 16 06/22/21 10:00 BP 141/79 06/22/21 10:00 Pulse Ox 97 06/22/21 10:00 Intake & Output 06/21/21 06/22/21 06/22/21 18:59 06:59 18:59 Weight 53.07 kg - Exam General: [non toxic], [no distress], [appears at stated age] Derm: [warm], [dry] Head: [atraumatic], [normocephalic], [symmetric] Eyes: [EOMI], [no lid lag], [anicteric sclera] Mouth: [no lip lesion], [mucus membranes moist] Cardiovascular: [S1S2 reg], [no murmur], [positive posterior tibial pulse bilateral], Lungs: [CTA bilateral], [no rhonchi, no rales] , [no accessory muscle use] Abdominal: [soft], [ nontender to palpation], [no guarding], [no appreciable organomegaly] Ext: [no gross muscle atrophy], [no edema], [no contractures] Neuro: [right hemiparesis] Psych: [Alert], [oriented to person], [appropriate affect] - Labs CBC & Chem 7: 06/22/21 04:46 06/22/21 04:46 Labs: Abnormal Lab Results - Last 24 Hours (Table) 06/21/21 06/21/21 06/21/21 Range/Units 17:01 17:01 17:01 RBC 3.24 L (4.30-5.90) m/uL Hgb 10.6 L (13.0-17.5) gm/dL Hct 31.9 L (39.0-53.0) % Eosinophils # 0.8 H (0-0.7) k/uL Glucose 190 H (74-99) mg/dL POC Glucose (mg/dL) (75-99) mg/dL AST (17-59) U/L LDL Cholesterol, Calc (0.0-131.0) mg/dL HDL Cholesterol (40.00-60.00) mg/dL Urine Protein 1+ H (Negative) Urine WBC 6 H (0-5) /hpf Urine Bacteria Occasional H (None) /hpf 06/21/21 06/22/21 06/22/21 Range/Units 17:06 04:46 04:46 RBC 3.10 L (4.30-5.90) m/uL Hgb 10.2 L (13.0-17.5) gm/dL Hct 30.8 L (39.0-53.0) % Eosinophils # (0-0.7) k/uL Glucose 103 H (74-99) mg/dL POC Glucose (mg/dL) 176 H (75-99) mg/dL AST 16 L (17-59) U/L LDL Cholesterol, Calc 136.1 H (0.0-131.0) mg/dL HDL Cholesterol 37.30 L (40.00-60.00) mg/dL Urine Protein (Negative) Urine WBC (0-5) /hpf Urine Bacteria (None) /hpf 06/22/21 Range/Units 07:53 RBC (4.30-5.90) m/uL Hgb (13.0-17.5) gm/dL Hct (39.0-53.0) % Eosinophils # (0-0.7) k/uL Glucose (74-99) mg/dL POC Glucose (mg/dL) 125 H (75-99) mg/dL AST (17-59) U/L LDL Cholesterol, Calc (0.0-131.0) mg/dL HDL Cholesterol (40.00-60.00) mg/dL Urine Protein (Negative) Urine WBC (0-5) /hpf Urine Bacteria (None) /hpf Assessment and Plan Assessment: TIA Patient presented with right lower extremity weakness right facial droop and slurred speech all symptoms resolved Continue with neurochecks No further intervention advised at this time by neurology No TPA given Continue with aspirin and statin. Plavix added Await PT eval OT eval for DC planning Patient has a loop recorder. Echo reviewed showed normal ejection fraction of 55-60% there is mild to moderate aortic regurgitation with moderate aortic stenosis. No further intervention by cardiology at this time. Chronic conditions Hypertension resume blood pressure meds in the morning Diabetes mellitus continue with insulin sliding scale Await hemoglobin A1c result A.m. labs Patient is full code DVT prophylaxis mechanical Anticipated length of stay less than 2 midnights
[2021-06-22 13:31] LABS: Glucose,Whole Blood 101 mg/dL (75-99)
[2021-06-22] MEDS: CLOPIDOGREL 75 MG TAB PO SCH (13:47)
[2021-06-22 16:40] LABS: Glucose,Whole Blood 121 mg/dL (75-99)
[2021-06-22] MEDS ORDERED: ATORVASTATIN 80 MG TAB PO SCH (18:30)
[2021-06-22] MEDS ORDERED: ATORVASTATIN 40 MG TAB PO SCH (18:30)
[2021-06-22 19:56] LABS: Glucose,Whole Blood 135 mg/dL (75-99)
[2021-06-23 04:23] VITALS: TEMP 98.2
[2021-06-23 06:05] LABS: Glucose,Whole Blood 122 mg/dL (75-99)
[2021-06-23 07:54] LABS: Basophils # (A) 0.1 k/uL (0-0.2); Basophils % (A) 1 %; Eosinophils # (A) 0.6 k/uL (0-0.7); Eosinophils % (A) 7 %; HCT 35.8 % (39.0-53.0); HGB 11.7 gm/dL (13.0-17.5); Lymphocytes # (A) 1.8 k/uL (1.0-4.8); Lymphocytes % (A) 20 %; MCH 32.3 pg (25.0-35.0); MCHC 32.6 g/dL (31.0-37.0); MCV 99.2 fL (80.0-100.0); Mean Platelet Volume 7.5; Monocytes # (A) 0.5 k/uL (0-1.0); Monocytes % (A) 5 %; Neutrophils # (A) 5.6 k/uL (1.3-7.7); Neutrophils % (A) 64 %; Platelet Count 319 k/uL (150-450); RBC 3.61 m/uL (4.30-5.90); WBC 8.7 k/uL (3.8-10.6)
[2021-06-23 08:38] LABS: Albumin 4.1 g/dL (3.5-5.0); Calcium 10.2 mg/dL (8.4-10.2); Magnesium 1.8 mg/dL (1.6-2.3); Phosphorus 4.4 mg/dL (2.5-4.5); Potassium 4.1 mmol/L (3.5-5.1); Total Bilirubin 0.5 mg/dL (0.2-1.3); Total Protein 7.6 g/dL (6.3-8.2)
[2021-06-23] MEDS ORDERED: SERTRALINE 25 MG TAB PO SCH (09:00)
[2021-06-23] MEDS ORDERED: FAMOTIDINE 20 MG TAB PO SCH (09:00)
--- NOTE | 2021-06-23 09:52 | P.PN ---
Subjective Progress Note Date: 06/23/21 Patient is seen at bedside and per the patient's nurse, he was confused overnight and non-cooperative. He was telling nursing staff he was in "Hell" Objective - Vital Signs Vital signs: Vital Signs Temp 98.2 F 06/23/21 04:00 Pulse 62 06/23/21 04:00 Resp 18 06/23/21 04:00 BP 154/86 06/23/21 04:00 Pulse Ox 96 06/23/21 04:00 Intake & Output 06/22/21 06/23/21 06/23/21 18:59 06:59 18:59 Intake Total 280 120 180 Output Total 625 300 Balance -345 -180 180 Weight 53.07 kg Intake: Oral 280 120 180 Output: Urine 625 300 Other: Voiding Method Urinal Urinal # Voids 2 - Exam GENERAL: The patient is lying in bed and does not seem he is not in acute distress. PSYCH: Flat affect. NEUROLOGICAL: Limited because of cooperation. Higher mental function: The patient is awake, alert, oriented to self. He kept on telling me he was in "Hell" and anything I would ask him he would say "Hell". Patient would not respond to place or time. Upon showing him a pen and asked him what he would call it he stated "you call it what you want"Difficulty to exam language in detail. No neglect. Cranial nerves: The pupils are round, equal and reactive to light. Visual wright: Difficulty to assess because of cooperation but appears Right homonymous Hemianopsia (old per ) . Extraocular movement is intact no nystagmus is noted. The facial strength is normal throughout. No dysarthria is noted. Could not assess rest of cranial nerves because of his cooperation. Motor: Gait is deferred. The strength is right upper is 4 but has increase tone because old stroke. Right knee extension is 4+ (per old). Otherwise 5 over 5 throughout left. Increase tone over the right upper (most at elbow). Normal bulk. Cerebellum:Could not asses. Sensation: Could not asses. Reflexes (right/left): 2+ throughout. Plantars is upgoing over the right and mute over the left. WORK-UP: Lipid panel is triglyceride 123, cholesterol of 198, LDL is 136 and HDL of 37. Hemoglobin A1c 6.2. AST of 18 and ALT of 10. Kennedy virus PCR not detected. Urinalysis is negative for urinary tract infection UDS is not detected. CT of the head is reported as cerebral atrophy. Old left occipital lobe infarct. Old 5 mm lacunar infarct in left internal capsule. No change compared to old exam. There is a maxillary sinusitis which is a mostly new compared to old exam. I personally reviewed the CT of the head I felt the stroke is predominantly in the left occipital that is old, possible slight in left parietal which seems chronic. CT angiography of the head and neck was reported as decreased arterial flow in the left posterior cerebral artery distal and the area of large infarct. This appears unchanged compared to old exam. No acute intracranial angiographic abnormality. Bilateral plaque formation at the carotid artery bifurcation without hemodynamic stenosis. No change compared to old exam. Carotid duplex: No hemodynamic significant stenosis of the proximal internal carotid arteries by Doppler criteria, an indirect measurement of carotid stenosis. Stroke code was activated by the ED team. Patient initial NIH in the ED was 10 which included chronic right sided weakness mostly in the upper extremity, aph adithya. And his repeated NIH stroke scale was a 4 per the ED team intubated was not given since his symptoms were improving. - Labs CBC & Chem 7: 06/23/21 07:26 06/23/21 07:26 Labs: Abnormal Lab Results - Last 24 Hours (Table) 06/22/21 06/22/21 06/22/21 Range/Units 04:46 04:46 13:30 RBC (4.30-5.90) m/uL Hgb (13.0-17.5) gm/dL Hct (39.0-53.0) % Creatinine (0.66-1.25) mg/dL Glucose (74-99) mg/dL POC Glucose (mg/dL) 101 H (75-99) mg/dL Hemoglobin A1c 6.2 H (4.0-6.0) % LDL Cholesterol, Calc 136.1 H (0.0-131.0) mg/dL HDL Cholesterol 37.30 L (40.00-60.00) mg/dL 06/22/21 06/22/21 06/23/21 Range/Units 16:38 19:46 06:03 RBC (4.30-5.90) m/uL Hgb (13.0-17.5) gm/dL Hct (39.0-53.0) % Creatinine (0.66-1.25) mg/dL Glucose (74-99) mg/dL POC Glucose (mg/dL) 121 H 135 H 122 H (75-99) mg/dL Hemoglobin A1c (4.0-6.0) % LDL Cholesterol, Calc (0.0-131.0) mg/dL HDL Cholesterol (40.00-60.00) mg/dL 06/23/21 06/23/21 Range/Units 07:26 07:26 RBC 3.61 L (4.30-5.90) m/uL Hgb 11.7 L (13.0-17.5) gm/dL Hct 35.8 L (39.0-53.0) % Creatinine 1.35 H (0.66-1.25) mg/dL Glucose 107 H (74-99) mg/dL POC Glucose (mg/dL) (75-99) mg/dL Hemoglobin A1c (4.0-6.0) % LDL Cholesterol, Calc (0.0-131.0) mg/dL HDL Cholesterol (40.00-60.00) mg/dL Assessment and Plan Assessment: Likely Transient ischemic stroke (with worsening of right facial droop, dysarthria and right sided weakness). No IV tpa since symptoms improved. Patient not on any antiplatelets (since family not aware and no information he needed to be). Old stroke on 11/2020 (Left occipital) with residual right hemiparesis (upper >lower), right homonymous hemianposia and aphasia Mild cognitive deficit/dementia (baseline oriented X2) Diabetes mellitus (Last HbA1c is 8.9 on 01/03/2021) Dyslipidemia Plan: * Continue aspirin 81 mg daily and Plavix 75mg daily (was not on any antiplatelets at home). Patient needs to be on dual antiplatets for 21 days and after that stop Plavix but continue ASA indefinitely. Continue Lipitor 40mg daily at bedtime for secondary stroke prophylaxis. LDL goal and strokes is less than the 70. * Cannot get MRI the brain since the patient has a loop recorder. * PT, OT and SHAKE SPLITTER are consulted * Ordered routine EEG because of the patient confusion. I'll not start the patient on antiepileptic drug unless there is epileptiform discharges or seizure on EEG. * Ordered TSH, vitamin B12 and folate level. * Started the patient on Zoloft 25 mg since the patient appears to have flat affect seems depressed and that is common and strokes. Consulted psychiatry team. * Continue neuro checks * On cardiac monitoring * The primary team consulted cardiology team. * We'll defer the rest of medical management to the primary team * Upon discharge the patient needs to follow-up with his neurologist within 1-2 weeks. The plan is discussed with the patient's nurse. Shoaib Cobos M.D. Neuro-Hospitalist Time with Patient: Less than 30
[2021-06-23 10:05] VITALS: RESP 15
[2021-06-23] MEDS: lisinopriL 5 MG TAB PO SCH (10:05)
[2021-06-23] MEDS: TAMSULOSIN 0.4 MG CAP.ER.24H PO SCH (10:05)
[2021-06-23] MEDS: ASPIRIN 81 MG PO SCH (10:05)
[2021-06-23] MEDS: CYANOCOBALAMIN 500 MCG TAB PO SCH (10:05)
[2021-06-23] MEDS: CLOPIDOGREL 75 MG TAB PO SCH (10:06)
[2021-06-23] MEDS ORDERED: amLODIPine 5 MG TAB PO SCH (10:15)
[2021-06-23] MEDS: INSULIN ASPART (NovoLOG) 100 UNIT/ML VIAL SQ SCH ×2 (10:39→11:48)
--- NOTE | 2021-06-23 11:30 | P.DS ---
Providers Date of admission: 06/21/21 19:01 Expected date of discharge: 06/23/21 Attending physician: Kali Mcgowan MD Consults: 06/21/21 19:02 Consult Physician Routine Consulting Provider: Shoaib Cobos Consult Reason/Comments: cva/tia Do you want consulting provider notified?: Yes 06/22/21 08:11 Consult Physician Routine Consulting Provider: Artem Bowman Consult Reason/Comments: CVA Do you want consulting provider notified?: Yes 06/23/21 08:47 Consult Physician Routine Consulting Provider: Psychiatry - [facility] Psychiatry Consult Reason/Comments: depression/ anger post cva Do you want consulting provider notified?: Yes Primary care physician: Stated None Hospital Course: This is a 71-year-old male with past medical history significant for prior stroke with residual right-sided weakness, type 2 diabetes, and hyperlipidemia that presented to the emergency room with an episode of slurred speech and confusion. Patient was evaluated in the ER and a computed tomography scan of the head and CT angiogram of the head and neck showed no acute findings. Patient was placed on observation for TIA workup. He was seen and evaluated by neurology. Patient has a loop recorder inserted by his computing architect and for that reason an MRI was not obtained. His symptoms resolved. He underwent echocardiogram showing preserved ejection fraction with no significant valvular abnormalities. Blood pressure was not well-controlled and home dose of lisinopril was increased to 20 mg daily. LDL was 136 and home dose of Lipitor increased to 80 mg daily. Patient was evaluated by PT/OT. He was cleared for discharge home. He was started on Zoloft 25 mg daily by neurology with concerns about underlying depression. Patient will follow up outpatient with his PCP and computing architect as directed. Patient was seen and evaluated by me on the day of discharge. General: The patient is awake and alert, in no distress Eye: there is normal conjunctiva bilaterally. Neck: The neck is supple, there is no JVD. Cardiovascular: Normal S1-S2, no S3-S4, no murmurs. Respiratory: Lungs clear to auscultation bilaterally Gastrointestinal: Abdomen is soft, nontender Musculoskeletal: There is no pedal edema. Neurological:. Speech is normal. Skin: Skin is warm and dry Patient Condition at Discharge: Serious Plan - Discharge Summary Discharge Rx Participant: No New Discharge Prescriptions: New Atorvastatin [Lipitor] 80 mg PO PC-SUPPER #30 tab lisinopriL 20 mg PO DAILY #30 tablet Aspirin 81 mg PO DAILY #30 tab Clopidogrel [Plavix] 75 mg PO DAILY #30 tab Sertraline [Zoloft] 25 mg PO DAILY #30 tab Continue metFORMIN HCL [Glucophage] 1,000 mg PO BID-W/MEALS Cyanocobalamin (Vitamin B-12) [Vitamin B-12] 1,000 mcg PO DAILY Tamsulosin HCl [Flomax] 0.4 mg PO DAILY Pioglitazone [Actos] 30 mg PO DAILY Discontinued lisinopriL [Zestril] 5 mg PO DAILY Atorvastatin [Lipitor] 40 mg PO PC-SUPPER Discharge Medication List Cyanocobalamin (Vitamin B-12) [Vitamin B-12] 1,000 mcg PO DAILY 06/21/21 [History] Pioglitazone [Actos] 30 mg PO DAILY 06/21/21 [History] Tamsulosin HCl [Flomax] 0.4 mg PO DAILY 06/21/21 [History] metFORMIN HCL [Glucophage] 1,000 mg PO BID-W/MEALS 06/21/21 [History] Aspirin 81 mg PO DAILY #30 tab 06/23/21 [Rx] Atorvastatin [Lipitor] 80 mg PO PC-SUPPER #30 tab 06/23/21 [Rx] Clopidogrel [Plavix] 75 mg PO DAILY #30 tab 06/23/21 [Rx] Sertraline [Zoloft] 25 mg PO DAILY #30 tab 06/23/21 [Rx] lisinopriL 20 mg PO DAILY #30 tablet 06/23/21 [Rx] Follow up Appointment(s)/Referral(s): Jeff Goncalves MD [STAFF PHYSICIAN] - 2 Weeks None,Stated [Primary Care Provider] - 1-2 days Discharge Disposition: HOME SELF-CARE
[2021-06-23 11:44] LABS: Glucose,Whole Blood 133 mg/dL (75-99)
--- NOTE | 2021-06-23 11:47 | P.PN ---
Subjective This is a pleasant 71-year-old male past medical history significant for CVA in November 2020 with right sided residual weakness, Loop recorder placed 12/2020 hypertension, dyslipidemia, type 2 diabetes. He does not follow with a lead quality control technician. We have been asked to see in consultation for CVA. Patient is somewhat a poor historian, he is unable to give me an accurate review of systems or explain what brought him into the hospital. Apparently he was brought to the emergency department due to worsening right sided facial droop, right sided weakness, and worsening aphasia and slurred speech. On admission, code stroke was activated. CT head revealed cerebral atrophy with old left occipital lobe infarct and old 5 mm lacunar infarct in the left internal capsule. No change from prior. Echocardiogram revealed EF of 5560 percent, aortic valve is tri leaflet and mildly thickened, mild to moderate mitral regurgitation, moderate aortic stenosis. Patient seen and examined at bedside, no acute distress. He denies any chest pain, shortness of breath, lightheadedness, dizziness. Telemetry reviewed patient sinus rhythm heart rate in the upper 40s50s. No evidence of arrhythmia noted. Labs reviewed, WBC 8.7, hemoglobin 11, platelets 319, sodium 140, potassium 4.1, BUN 14, serum creatinine 1.35. He's currently maintained onaspirin 81mg daily, atorvastatin 80 mg nightly, Plavix 75 mg daily, lisinopril 5 mg daily PHYSICAL EXAMINATION Blood pressure 144/72, heart rate 54, afebrile oxygen saturation is 96% on room air. CONSTITUTIONAL: No apparent distress. HEENT: Neck Supple No JVD CHEST EXAMINATION: Lungs are clear to auscultation. No chest wall tenderness is noted on palpation or with deep breathing. HEART EXAMINATION: Regular rate and rhythm. S1, S2 heard. Systolic ejection murmur at the base ABDOMEN: Soft, nontender. Positive bowel sounds. EXTREMITIES: 2+ peripheral pulses, no lower extremity edema and no calf tenderness. NEUROLOGIC EXAMINATION: Patient is awake, alert and oriented x1. ASSESSMENT Right sided weakness, right facial droop, slurred speech, aphasia History of CVA with right-sided residual weakness Hypertension Dyslipidemia Type 2 diabetes Moderate aortic stenosis PLAN Add amlodipinen 5mg daily Will obtain records from [facility] in order to interrogate loop recorder Continue aspirin, statin, and lisinopril Neurology following No further cardiac testing indicated at this time. Further recommendations based on clinical course. Nurse Practitioner note has been reviewed, I agree with a documented findings and plan of care. Patient was seen and examined. Objective - Vital Signs Vital signs: Vital Signs Temp 98.2 F 06/23/21 10:04 Pulse 54 L 06/23/21 10:04 Resp 15 06/23/21 10:04 BP 144/72 06/23/21 10:04 Pulse Ox 96 06/23/21 10:04 Intake & Output 06/22/21 06/23/21 06/23/21 18:59 06:59 18:59 Intake Total 280 120 180 Output Total 625 300 Balance -345 -180 180 Weight 53.07 kg Intake: Oral 280 120 180 Output: Urine 625 300 Other: Voiding Method Urinal Urinal # Voids 2 - Labs CBC & Chem 7: 06/23/21 07:26 06/23/21 07:26 Labs: Abnormal Lab Results - Last 24 Hours (Table) 06/22/21 06/22/21 06/22/21 Range/Units 04:46 13:30 16:38 RBC (4.30-5.90) m/uL Hgb (13.0-17.5) gm/dL Hct (39.0-53.0) % Creatinine (0.66-1.25) mg/dL Glucose (74-99) mg/dL POC Glucose (mg/dL) 101 H 121 H (75-99) mg/dL Hemoglobin A1c 6.2 H (4.0-6.0) % TSH (0.465-4.680) mIU/L 06/22/21 06/23/21 06/23/21 Range/Units 19:46 06:03 07:26 RBC 3.61 L (4.30-5.90) m/uL Hgb 11.7 L (13.0-17.5) gm/dL Hct 35.8 L (39.0-53.0) % Creatinine (0.66-1.25) mg/dL Glucose (74-99) mg/dL POC Glucose (mg/dL) 135 H 122 H (75-99) mg/dL Hemoglobin A1c (4.0-6.0) % TSH (0.465-4.680) mIU/L 06/23/21 06/23/21 Range/Units 07:26 07:26 RBC (4.30-5.90) m/uL Hgb (13.0-17.5) gm/dL Hct (39.0-53.0) % Creatinine 1.35 H (0.66-1.25) mg/dL Glucose 107 H (74-99) mg/dL POC Glucose (mg/dL) (75-99) mg/dL Hemoglobin A1c (4.0-6.0) % TSH 4.920 H (0.465-4.680) mIU/L
--- NOTE | 2021-06-23 14:27 | P.CN ---
Psychiatric Consult - . Consult date: 06/23/21 Consult:: 06/23/21 14:27 IDENTIFYING DATA: This patient is a retired, , 71-year-old male who was admitted for slurred speech and right-sided facial droop. HISTORY OF PRESENT ILLNESS: The patient presented to the hospital on 06/21/21, brought in by EMS for worsening aphasia and right-sided facial droop. Psychiatry has been consulted for management and evaluation of depression. Patient is status post CVA on 11/2020. Much of the history was provided by the patient's ex- Jaylin as the patient is currently a poor historian. The patient did admit that he has been feeling increasingly depressed and has had occasional visual disturbances in the form of seeing " people" that are not really there. He does report that his mood has been low since his stroke. He does have occasional crying episodes. However, the patient vehemently denies any suicidal or homicidal ideation, intention, and/or plan. He does express that he is "ready to go." The patient's ex- Jaylin provided collateral information. She reports that the patient had initial issues with anxiety prior to his stroke but it was after his stroke that he began to have a significant decrease in his mood. She does acknowledge that the patient has occasional episodes of short-term memory and can be easily frustrated because of this. She denies any suicidal, or homicidal ideation, intention, and/or plan from the patient. She does acknowledge that the patient is living with his son and that she comes in during the day while his son is at work to take care of him. PAST PSYCHIATRIC HISTORY: Past psychiatric history was provided by the patient's ex- Jaylin. She reports that the patient has had issues with anxiety and was previously self- medicating with alcohol until his stroke this past November. She otherwise reports that the patient has never had any formal psychiatric treatment or been on any psychotropic medications. She reports no prior psychiatric hospitals hallucinations for the patient. She states that the patient has not attempted suicide to the best of her knowledge. PAST MEDICAL HISTORY: Past Medical History: COPD, Diabetes Mellitus Additional Past Medical History / Comment(s): bladder CA, right sided weakness from previous stroke, hemorrhagic stroke History of Any Multi-Drug Resistant Organisms: None Reported Past Surgical History: Hernia Repair Smoking Status: Never smoker Past Alcohol Use History: Daily Past Drug Use History: None Reported ALLERGIES: NO KNOWN DRUG ALLERGIES. CHEMICAL DEPENDENCY HISTORY: As per the patient's ex-, the patient used to drink heavily prior to his stroke. She states that since his stroke this past November, the patient has not had a drop of alcohol. She reports no tobacco use, marijuana use, or illicit drug use. FAMILY PSYCHIATRIC/SUBSTANCE USE HISTORY: No reported history. SOCIAL HISTORY: Patient currently lives with his son and is taken care of by his ex- during the day. MENTAL STATUS EXAM: General Appearance: Patient appears to be stated age is alert, pleasant, and cooperative. Patient appears to have fair hygiene and grooming wearing hospital gown with fair eye contact. Behavior: Patient is calmly lying in bed without any agitated behavior. Speech: Patient's speech is fluent and nonpressured. Spontaneous, with normal rate, tone, and volume. Mood/Affect: Patient reports their mood is "I'm tired of it all", affect is congruent and at times tearful. Suicidality/Homicidality: Patient denies having any suicidal or homicidal ideation intent or plan. Perceptions: Patient denies any visual hallucinations and denies any auditory hallucinations Though content/process: There is no evidence of any delusional thought content and thought process is linear and goal-directed. Memory and concentration: Memory and concentration are grossly poor. The patient is not alert or oriented in any sphere aside from self. Judgment and insight: poor IMPRESSIONS: Transient ischemic stroke Depressive disorder secondary to general medical condition Diabetes mellitus Dementia Dyslipidemia PLAN: -At this time patient DOES NOT meet criteria for inpatient psychiatric admission. -Delirium precautions recommended with patient including - avoiding use of narcotics and RESAW FEEDER sedatives, limit anticholinergic medications when possible, frequent re-orientation, minimize use of restraints, open window shades during the day and close them at night -Would recommend the following medication changes/additions: Agree with the initiation of Zoloft 25 mg daily for management of depression/anxiety. -Consider the initiation of Namenda or Aricept for management of neurocognitive disorder -Recommend outpatient psychiatric and neurological follow-up. -Psychiatry will sign off at this point, please contact with any questions. 06/23/21 14:27
--- NOTE | 2021-06-23 15:47 | EEG ---
ELECTROENCEPHALOGRAM REPORT DATE OF SERVICE: 06/23/2021. CLINICAL HISTORY: This is a 71-year-old gentleman with altered mental status. The video EEG is obtained to evaluate for seizure and epileptiform activity. RELEVANT MEDICATION: The patient is not on any antiepileptic drugs. EEG TYPE: A routine 21-channel EEG is performed with video using the 10/20 electrode placement system. DESCRIPTION: Wakefulness, drowsiness and sleep states are obtained. During wakefulness there is a posterior-dominant rhythm of low to moderate voltage that is well modulated, well sustained of 7 to 7.5 hertz. During drowsiness there is slowing and attenuation of the background activity. During stage II sleep, there are sleep spindles and K complexes. There is no focal slowing. Interictal and ictal is none. ACTIVATION PROCEDURE: Photic stimulation and hyperventilation are not performed. CLINICAL INTERPRETATION: This is an abnormal routine EEG. The background slowing is suggestive of mild encephalopathy. There are no focal slowing, epileptiform discharges or seizure on the EEG. Clinical correlation is recommended. MYRA / MUKUL: [id number] / YOLI
[2021-06-23 16:36] LABS: Glucose,Whole Blood 169 mg/dL (75-99)
[2021-06-23 17:42] VITALS: BP 180/70; PULSE 58
[2021-06-24 02:15] LABS: Folate, Serum 15.9 ng/mL (4.40-31.00)
== END 2021-06-23 18:22 | disposition home or self-care (01) | DRG 69 ==
LOC: EC 16:26 → 3SCARD 19:01
PROVIDERS: ADMIT Internal Medicine; ATTEND Internal Medicine
DX: G45.9 Transient cerebral ischemic attack, unspecified (principal); I69.351 Hemiplegia and hemiparesis following cerebral infarction affecting right dominant side; D64.9 Anemia, unspecified; E11.65 Type 2 diabetes mellitus with hyperglycemia; E78.5 Hyperlipidemia, unspecified; F03.90 Unspecified dementia, unspecified severity, without behavioral disturbance, psychotic disturbance, mood disturbance, and anxiety; F32.9 Major depressive disorder, single episode, unspecified; I08.0 Rheumatic disorders of both mitral and aortic valves; I10 Essential (primary) hypertension; I69.320 Aphasia following cerebral infarction; J32.0 Chronic maxillary sinusitis; J44.9 Chronic obstructive pulmonary disease, unspecified; R29.704 NIHSS score 4; R29.810 Facial weakness; Z20.822 Contact with and (suspected) exposure to COVID-19; Z79.02 Long term (current) use of antithrombotics/antiplatelets; Z79.84 Long term (current) use of oral hypoglycemic drugs; Z79.899 Other long term (current) drug therapy; Z85.51 Personal history of malignant neoplasm of bladder; R00.1 Bradycardia, unspecified
CPT/HCPCS: 36415; 70450; 70496; 70498; 71046; 80053; 80061; 80306; 81001; 82607; 82746; 83036; 83735; 84100; 84439; 84443; 84484; 85025; 85610; 85730; 87635; 93005; 93306; 93880; 95819; 99291